=== PATIENT | female | born 1945 | race Caucasian/White ===

== ENCOUNTER → 2017-07-09 | Outpatient (CLI) | payer OTHER, BC ==
[~2017-07-09] VITALS: Ht 165.1 cm; Wt 88.5 kg
[~2017-07-09] MED LIST: ALEVE220 MG PO; ALPHA LIPOIC A100 MG PO; BIOTIN1000 MCG PO; CALCIUM + VITA1 EAC2 PO; CITRACAL + BON1 EACH PO; CO Q-10100 MG PO; FIBER GUMMIES1 EACH PO; FISH OIL GUMMI1 EACH PO; HAIR, SKIN & N1 EAC1 PO; LESCOL40 MG PO; LISINOPRIL5 MG PO; NAPROSYN500 MG PO; PERCOCET PO; PROTEIN NUTRIT414 ML PO; VITAMIN B-12500 MCG PO; [UNRECOGNIZED DRUG - OTHER] PO
--- NOTE | ~2017-07-09 | P ---
[place] [address] PROCEDURE REPORT Name: REMINGTONAPTTIE S Room #: [facility]#: [id number] Admission: 07/09/17 Attend Phys: Manuel Charlton MD Discharge: Date of : 45 Report #: [id number] THIS REPORT FOR: //name// CC: Manuel Smart BRIEF HISTORY: The patient is a 72-year-old woman with an advanced adenoma removed 3 years ago from the sigmoid colon. She presents for high risk screening colonoscopy today. PREOPERATIVE DIAGNOSIS: High risk screening colonoscopy. POSTOPERATIVE DIAGNOSIS: Diverticulosis coli, greater left colon than right colon. MEDICATIONS: Deep sedation with propofol per anesthesia. SPECIMEN: None. ESTIMATED BLOOD LOSS: None. PROCEDURE: Colonoscopy to cecum and terminal ileum. FINDINGS: Prior to propofol sedation, procedure of colonoscopy discussed with the patient as well as potential risks and its complications. She indicates she understands and desires to proceed. DESCRIPTION OF PROCEDURE: With the patient in left lateral decubitus position, digital examination was completed which revealed no abnormalities. Subsequently, the [employer] video colonoscope was introduced into the rectum and advanced under direct vision to the cecum. Done with minimal difficulty. The cecum was identified by the ileocecal valve and appendiceal orifice. I was able to visualize the distal segment of terminal ileum, which was inspected and noted to be unremarkable. At that point, the scope was slowly withdrawn and careful circumferential views obtained including retroflexing the scope in the ascending colon. As we withdrew the scope, the prep was good. The mucosa was within normal limits, normal vascular pattern, normal light reflex. As we withdrew the scope, no polyps were seen. Inflammatory changes were not seen. She had normal colonic mucosa throughout. However, she did have diverticula scattered about the colon. There were diverticula in the proximal colon, but most notably in the sigmoid colon without endoscopic evidence of diverticulitis. The scope was withdrawn in the rectum. Upon retroflexion, no abnormalities were seen. Scope was withdrawn. The patient tolerated the procedure well. CONDITION OF THE PATIENT UPON DISCHARGE: Following procedure, the patient drowsy, aroused, conversant and will be discharged home when fully ambulatory. [address] [address] PROCEDURE REPORT Name: ANSHU MACEDOIA Leana Room #: [facility]#: [id number] Admission: 07/09/17 Attend Phys: Manuel Charlton MD Discharge: Date of : 45 Report #: [id number] INSTRUCTIONS TO THE PATIENT AND FAMILY AT THE TIME OF DISCHARGE: No neoplastic lesions were seen. She had an advance adenoma removed 3 years ago. We will have her return in 5 years for followup colon exam. I suggest high fiber diet for diverticular disease. Last colonoscopy was 3 years ago. Withdrawal time from the cecum was 13 minutes. <ELECTRONICALLY SIGNED> By: Manuel Charlton MD 07/10/17 1523 [id number] Manuel Charlton MD /[place]
== END | disposition home or self-care (01) ==
LOC: GI 08:13
DX: Z09 Encounter for follow-up examination after completed treatment for conditions other than malignant neoplasm (principal); K57.30 Diverticulosis of large intestine without perforation or abscess without bleeding; M19.90 Unspecified osteoarthritis, unspecified site; Z87.442 Personal history of urinary calculi; Z98.890 Other specified postprocedural states; Z88.8 Allergy status to other drugs, medicaments and biological substances; Z87.891 Personal history of nicotine dependence
CPT/HCPCS: 62110